=== PATIENT | female | born 1995 | race Caucasian/White ===

== ENCOUNTER 2024-10-09 11:09 | Outpatient (CLI) | payer BC, SELFPAY ==
[2024-10-09 12:31] LABS: Beta HCG Quantitative 76.92 mIU/ML
[2024-10-09 14:48] LABS: Hepatitis C Virus Antibody Negative (Negative)
[2024-10-09 22:22] LABS: HIV 1/2 Ab P24 Ag Result Negative (Negative)
[2024-10-10 07:12] LABS: Rapid Plasma Reagin Non-Reactive (NonReactive)
[2024-10-11 06:39] LABS: Prolactin 17.8 ng/mL
[2024-10-11 08:17] LABS: Hepatitis Be Antibody NON-REACTIVE (NON-REACTIVE)
== END 2024-10-09 11:10 | disposition home or self-care (01) ==
LOC: ANHLAB 11:10
PROVIDERS: Nurse Practitioner Obstetrics & Gynecology; Visit Provider Obstetrics & Gynecology
DX: Z11.3 Encounter for screening for infections with a predominantly sexual mode of transmission (principal); R79.89 Other specified abnormal findings of blood chemistry
CPT/HCPCS: 36415; 84146; 84702; 86592; 86703; 86707; 86803; G0432

== ENCOUNTER 2024-10-11 09:58 | Outpatient (CLI) | payer BC, SELFPAY ==
[2024-10-11 10:41] LABS: Beta HCG Quantitative 146.91 mIU/ML
== END 2024-10-11 09:59 | disposition home or self-care (01) ==
LOC: ANHLAB 10:00
PROVIDERS: Visit Provider Obstetrics & Gynecology
DX: T83.31XA Breakdown (mechanical) of intrauterine contraceptive device, initial encounter (principal); Z33.1 Pregnant state, incidental
CPT/HCPCS: 36415; 84702

== ENCOUNTER 2024-10-12 11:16 | Outpatient (CLI) | payer BC, SELFPAY ==
--- NOTE | ~2024-10-12 | US_ITS ---
EXAMINATION: US OB <=14 wk fetus w TV DATE: 10/12/2024 12:16 INDICATION: Pelvic and perineal pain during first trimester TECHNIQUE: Real-time pelvic ultrasound utilizing both a transvaginal and transabdominal probe was pe rformed. The interpreting radiologist was not present for the study. COMPARISON: None. FINDINGS: The uterus measures 7.8 x 4.1 x 4.7 cm. The endometrial complex measures 13 mm in thickness. There is a T-shaped linear echogenic and shadowing IUD in expected position within the endometrial canal. 4 m m cystic lesion along the posterior margin of the endometrial complex at the uterine body. On the reggie e images in additional 5 mm anechoic cystic lesion is identified along one side of the endometrial co mplex at the lower uterine segment. No definitive double decidual sign or internal yolk sac or pole associated with either cystic lesion. There is a 2.0 x 1.5 x 1.5 cm hypoechoic mass along the ri ght anterior margin of the fundus with appearance most suggestive of a pedunculated subserosal fibroi d. No definitive intrauterine or extrauterine gestational sac identified. The right ovary measures 2.3 x 1.9 x 2.0 cm. The left ovary measures 3.2 x 2.4 x 1.8 cm. 1.5 cm likel y corpus luteum cyst in the left ovary. Breast or flow identified in both ovaries on color Doppler. T here is no free fluid in the pelvis. IMPRESSION: 1. IUD in expected position within the endometrial canal with no definitive intrauterine gestational sac which is equivocal for early, failed or ectopic . 2. A couple 4 mm and 5 mm cystic lesions along the periphery of the endometrial canal in the posterio r body and lower uterine segment respectively which could represent myometrial cysts or potentially e karla gestational sacs. 3. 2.0 cm exophytic mass arising from the right anterior fundus most likely representing a pedunculat ed uterine fibroid. Reviewed, dictated and finalized at location B. ER MEAT IMPRESSION: 1. IUD in expected position within the endometrial canal with no definitive int rauterine gestational sac which is equivocal for early, failed or ectopic pregn ab. 2. A couple 4 mm and 5 mm cystic lesions along the periphery of the endometrial canal in the posterior body and lower uterine segment respectively which could represent myometrial cysts or potentially early gestational sacs. 3. 2.0 cm exophytic mass arising from the right anterior fundus most likely rep resenting a pedunculated uterine fibroid.
== END 2024-10-12 11:17 | disposition home or self-care (01) ==
PROVIDERS: Visit Provider Obstetrics & Gynecology
DX: O26.859 Spotting complicating pregnancy, unspecified trimester (principal); T83.31XA Breakdown (mechanical) of intrauterine contraceptive device, initial encounter; Y83.8 Other surgical procedures as the cause of abnormal reaction of the patient, or of later complication, without mention of misadventure at the time of the procedure; Z3A.00 Weeks of gestation of pregnancy not specified
CPT/HCPCS: 76801; 76817

== ENCOUNTER 2024-10-16 10:47 | Outpatient (CLI) | payer BC, SELFPAY | END 2024-10-16 10:48 | disposition home or self-care (01) | LOC: ANHLAB 10:49 | PROVIDERS: Visit Provider Obstetrics & Gynecology | DX: T83.31XA Breakdown (mechanical) of intrauterine contraceptive device, initial encounter (principal); Z33.1 Pregnant state, incidental | CPT/HCPCS: 36415; 84702 ==

== ENCOUNTER 2024-10-23 11:04 | Outpatient (CLI) | payer BC, SELFPAY ==
--- NOTE | ~2024-10-23 | US_ITS ---
EXAMINATION: US OB <=14 wk fetus w TV DATE: 10/23/2024 11:36 INDICATION: First trimester with inconclusive viability TECHNIQUE: Real-time pelvic ultrasound utilizing both a transvaginal and transabdominal probe was pe rformed. The interpreting radiologist was not present for the study. COMPARISON: None. FINDINGS: The uterus measures 8.1 x 4.2 x 4.8 cm. There is a linear echogenic and shadowing T-shaped IUD in exp ected position within the endometrial canal. The endometrial complex measures 1.4 cm. The posterior u terine body is a 2-3 mm anechoic likely myometrial cyst with no double decidual sign or evident inter nal yolk sac or pole to suggest a gestational sac. The right ovary measures 2.9 x 1.9 x 2.9 cm. The left ovary measures 3.7 x 3.4 x 2.0 cm. 1.1 cm anech oic possible corpus luteum cyst in the left ovary. Vascular flow identified in both ovaries on color Doppler. Abutting but appearing separate from the left ovary is a 1.9 x 1.8 x 1.1 cm complex cystic l esion with up to 4 mm thick hyperechoic wall surrounding a 1 cm anechoic ectopic gestational sac whic h contains both a 3 mm yolk sac and a single pole. The crown rump length measures 5 mm, which c orrelates with an estimated gestational age of 6 weeks and 1 days. heart motion is identified m easuring 110 beats per minute (bpm) by M-mode Doppler. There is no free fluid in the pelvis. IMPRESSION: 1. Left adnexal likely intratubal ectopic which contains a living 5 mm pole with feta l heart motion with heart rate of [address] Ponce discussed these findings with Iris Kohler ser the nurse for Dr. López at 11:58 AM. 2. Gestational age by ultrasound of 6 weeks 1 day(s) +/- 4 day(s). 3. IUD in expected position within the endometrial canal with no evident intrauterine gestational sac . Reviewed, dictated and finalized at location A. I MAKER IMPRESSION: 1. Left adnexal likely intratubal ectopic which contains a living 5 m m pole with heart motion with heart rate of [address] Rosario chopra iscussed these findings with Iris Pinedo the nurse for Dr. López at 11:58 AM. 2. Gestational age by ultrasound of 6 weeks 1 day(s) +/- 4 day(s). 3. IUD in expected position within the endometrial canal with no evident intrau terine gestational sac.
== END 2024-10-23 11:05 | disposition home or self-care (01) ==
LOC: MICIMG 11:04
PROVIDERS: PCP Nurse Practitioner Obstetrics & Gynecology; Visit Provider Nurse Practitioner Obstetrics & Gynecology
DX: O36.80X0 Pregnancy with inconclusive fetal viability, not applicable or unspecified (principal); Z3A.00 Weeks of gestation of pregnancy not specified
CPT/HCPCS: 76801; 76817

== ENCOUNTER 2024-10-23 12:47 | Day surgery (SDC) | payer BC, SELFPAY ==
[2024-10-23] VITALS (8 sets, daily range): BP systolic 114–141; BP diastolic 63–88; PULSE 71–98; RESP 14–20; TEMP 36.4; O2SAT 99–100; BMI 35.9
[2024-10-23] MEDS: LACTATED RINGERS 1,000 ML 30 ML IV CONT (13:45)
[2024-10-23] MEDS: ACETAMINOPHEN 500 MG TABLET 1000 MG PO (13:46)
[2024-10-23] MEDS: KETOROLAC 15 MG/ML VIAL (*BKC) IV PUSH (13:48)
--- NOTE | 2024-10-23 13:59 | P.PNAN_ITS ---
Anes - Initial Pre Proc Eval Procedure: Operation Date: 10/23/24 14:30 Proposed Procedures p Operative Laparoscopy for Ectopic - Pieter Vaughan MD Date/Time: 10/23/24 13:59 Surgeon: Pieter Vaughan MD Pre Op Diagnosis: ectopic Patient Data Age: 29 Gender: F Height: Weight: Allergies Allergy/AdvReac Type Severity Reaction Status Date / Time Sulfa (Sulfonamide AdvReac Mild YEAST Verified 08/04/24 10:27 Antibiotics) INFECTION Home Medications Medication Instructions Recorded Confirmed Type copper 380 square mm intrauterine 1 device intrauterine ONCE 08/04/24 08/04/24 History device (ParaGard T 380A) Patient hx anesthesia problems: post op nausea/vomiting Family hx anesthesia problems: none Results Review: All pre-operative results and documents have been reviewed as part of the pre- operative evaluation. [facility] Family History Family History Mother Depression Thyroid disease Father Hypertension Thyroid disease Sibling Thyroid disease Depression Grandparent Lymphoma Social History Social History Smoking status: Never smoker Alcohol intake: current Substance use: never Anes - Eval Final PreProcedure Day of Procedure 10/23/24 13:59 Patient weight: obese Heart: regular rate and rhythm Lungs: clear to auscultation Airway: Mallampati scale class II Neurological: alert and oriented Last oral intake: >/= 8 hours ASA classification: III Emergent: yes Anesthesia type and monitoring: general ETT and standard monitoring Results Review: All pre-operative results and documents have been reviewed as part of the pre- operative evaluation. Informed Consent: The patient's anesthetic plan and its attendant risks and benefits were discussed with the patient/family/POA. Questions were solicited and answers provided to the satisfaction of the patient/family/POA.
[2024-10-23] MEDS: SCOPOLAMINE 1 MG PATCH 1 PATCH TRANSDERM (14:13)
--- NOTE | 2024-10-23 14:23 | P.HP_ITS ---
H&P: HPI History of Present Illness Date/Time: 10/23/24 14:23 Chief Complaint: Ectopic Narrative: 29 y/o G0 with unplanned with indwelling copper IUD. She has been informed of risk of ectopic and was getting serial hcg and ultrasounds. Ultrasound today showed left adnexal ectopic with cardiac activity. No signs of rupture. She has been informed of treatment options of surgical removal recommended. Discussed methotrexate medication which she is not an optimal candidate for methotrexate due to her risk of ectopic rupture. Discussed risk of surgery and risk of not performing surgery. She is aware that usually able to remove by incision in tube and removal of ectopic product or need to remove affected tube. Discussed future risk of ectopic . Questions answered. Review of Systems Review of Systems: All systems reviewed & are unremarkable except as noted in HPI and below Cardiovascular: Cardiovascular: Reports no additional cardiovascular complaints, Denies chest pain and Denies dyspnea Respiratory: Respiratory: Reports no additional respiratory complaints and Denies dyspnea Gastrointestinal: Gastrointestinal: Reports abdominal pain, Denies change in bowel habits, Denies diarrhea, Denies nausea and Denies vomiting Genitourinary: Genitourinary: Reports pelvic pain Musculoskeletal: Musculoskeletal: Reports back pain Integumentary/Breasts: Skin/Breast: Reports system reviewed and no additional complaints, except as docu Neurologic: Reports system reviewed and no additional complaints, except as documented [facility] Family History Family History Mother Depression Thyroid disease Father Hypertension Thyroid disease Sibling Thyroid disease Depression Grandparent Lymphoma Social History Social History Smoking status: Never smoker Alcohol intake: current Substance use: never Meds Home Medications and Allergies Home Medications Medication Instructions Recorded Confirmed Type copper 380 square mm intrauterine 1 device intrauterine ONCE 08/04/24 08/04/24 History device (ParaGard T 380A) Allergies Allergy/AdvReac Type Severity Reaction Status Date / Time Sulfa (Sulfonamide AdvReac Mild YEAST Verified 08/04/24 10:27 Antibiotics) INFECTION Vital Signs Vital Signs - 24 hr 10/23/24 14:03 Temperature 97.5 F L Pulse Rate 75 Respiratory Rate 20 Blood Pressure 117/63 Pulse Oximetry 99 Oxygen Delivery Room Air Exam Const: Orientation/consciousness: oriented to person and oriented to place HENMT: Head: normal to inspection Eyes: General: appearance normal, both eyes and all related structures Resp: Effort & Inspection: normal respiratory effort Auscultation: clear to auscultation bilaterally Cardio: Rate: regular rate Rhythm: regular rhythm GI: Inspection: normal to inspection GI Palp: No Rebound tenderness present Neuro: General: oriented to person and oriented to place Cognition (Neuro): normal cognition Extrem: General: normal to inspection Psych: Appearance: grossly normal and well kempt Assessment and Plan Assessment and plan (1) Ectopic : Code(s): O00.90 - Unspecified ectopic without intrauterine Status: Acute Assessment and Plan: She has been informed of diagnosis and risk of not removing the ectopic to include rupture of ectopic, , hysterectomy. She agrees to laparoscopic removal of ectopic .
--- NOTE | 2024-10-23 14:30 | WPDHPUPDATE1 ---
History and Physical Update Update Date/Time: 10/23/24 14:30 History and Physical has been reviewed, including an updated exam of the patient. There are NO changes in the patient's condition. Risks, benefits, and alternatives have been discussed and questions answered. Patient agrees to proceed with procedure.
[2024-10-23] MEDS: DOXYCYCLINE 100 MG/NS 100 ML 100 MG/100 ML BAG IVPB (14:41)
[2024-10-23] MEDS: BUPivacaine HCL 0.5% PF 30 ML VIAL INFILTRATE (15:20)
--- NOTE | 2024-10-23 15:54 | P.OP_ITS ---
Procedure Note - Detailed Date of Procedure 10/23/24 Pre-op Diagnosis ectopic Post-op Diagnosis Same (Left ovarian ectopic ) Procedure Performed laparoscopic removal of ectopic with left salpingo-oophorectomy Surgeon Pieter Vaughan MD Anesthesia General Indications patient with conception with IUD was being followed closely for confirmation of location and had an ultrasound today which showed a left ectopic near the left ovary with cardiac activity. Findings Normal appearing left tube, left ovary with small area of adherent clot once this was removed then area of oozing noted under it and growth which took up greater than 50% of ovary noted. Description of Procedure after informed consent was obtained patient was taken to the operating room and general endotracheal anesthesia was initiated. She was placed in low lithotomy position and prepped and draped in sterile fashion. Straight catheter was used and drained of 100 cc of yellow urine. Speculum was inserted single-tooth tenaculum placed on anterior lip of the cervix IUD string visualized the acorn uterine manipulator was inserted. Attention was turned to the abdomen. 0.5% Marcaine was injected at the umbilicus and a vertical incision was made with the scalpel a Veress needle was then inserted confirmation into the abdomen was obtained with normal free flow of fluid and normal peritoneal pressures. A pneumoperitoneum with 15 mm per mercury was obtained. Patient was placed in Trendelenburg position attention and a 5 mm port was inserted under laparoscopic visualization. Attention was turned to the left side of the abdomen under laparoscopic visualization a 5 mm port was inserted. Attention was turned to the right side of the abdomen and Marcaine was injected before eac h incision. And a 10 11 mm port was inserted under laparoscopic visualization. The pelvis was visualized. The left tube did not appear dilated. There was some adherent clot on the left ovary. This was removed. There was an area underneath the clot that had a slow slight ooze. The ovary was inspected and it appeared that the ectopic was on the ovary distal taking up greater than 50% of the ovary. At this time decision was made to remove the left ovary and tube for removal of the ectopic . LigaSure was used and the infundibulopelvic ligament was ligated and the fallopian tube and ovarian ligament were ligated. The fallopian tube and ovary were placed in the Endo-Catch bag. The pelvis was irrigated and cleared of clot in the cul-de-sac. The left adnexa area was noted to be hemostatic. The incision on the left side was extended and the fascia was extended. The Endo-Catch bag was removed intact. The pneumoperitoneum was released. The fascia was approximated with 0 Vicryl on a UR 6. Skin incisions were closed subcuticular with 4-0 Vicryl and Dermabond. Sponge count was correct. Patient was extubated in the operating room and taken to recovery in stable condition. Estimated Blood Loss 30 Urine Output 100 Drains No Packing No Pathology Yes ( Left fallopian tube and ovary and adherent clot) Complications No immediate complications Condition Stable Disposition PACU [facility] Billing Surgery - Charge Forward: Surgery Billing
[2024-10-23] MEDS: fentaNYL CITRATE INJ (*CRX) 100 MCG/2 ML VIAL 25 MCG IV PUSH ×2 (16:35→16:37)
[2024-10-23] MEDS: oxyCODONE HCL (*CRX) 5 MG TAB IR PO (17:40)
== END 2024-10-23 18:10 | disposition home or self-care (01) ==
PROVIDERS: PCP Nurse Practitioner Obstetrics & Gynecology; Visit Provider Obstetrics & Gynecology
PROC: (CPT 49320; principal; 2024-10-23 14:30)
DX: O00.202 Left ovarian pregnancy without intrauterine pregnancy (principal)
CPT/HCPCS: 59151; 36415; 85461; 86850; 86900; 86901; 88305; A9270; J1100; J1885; J2003; J2250; J2405; J2704; J3010; J7030; J7120

== ENCOUNTER 2024-10-31 10:01 | Outpatient (CLI) | payer BC, SELFPAY | END 2024-10-31 10:02 | disposition home or self-care (01) | PROVIDERS: PCP Nurse Practitioner Obstetrics & Gynecology; Visit Provider Obstetrics & Gynecology | DX: O00.90 Unspecified ectopic pregnancy without intrauterine pregnancy (principal); Z3A.00 Weeks of gestation of pregnancy not specified | CPT/HCPCS: 36415; 84702 ==

== ENCOUNTER 2024-11-01 09:03 | Outpatient (CLI) | payer BC, SELFPAY ==
--- NOTE | ~2024-11-01 | US_ITS ---
EXAMINATION: US OB <=14 wk fetus w TV DATE: 11/01/2024 10:05 INDICATION: Ectopic TECHNIQUE: Real-time pelvic ultrasound utilizing both a transvaginal and transabdominal probe was pe rformed. The interpreting radiologist was not present for the study. COMPARISON: None. FINDINGS: The uterus measures 8.1 x 3.5 x 3.8 cm. Again seen is a linearT-shaped shadowing IUD in expected pos ition within the endometrial canal.No intrauterine . A yolk sac and pole are identifi ed within an ectopic abutting the left side of the uterus. The crown rump length measures 9 mm, which correlates with an estimated gestational age of 7 weeks and 0 days. heart motion is identified measuring 147 beats per minute (bpm) by M-mode Doppler. The majority the gestational sac i s surrounded by echogenic parametrial fat. On the cine images there is a claw sign of hypoechoic myom etrium which appears contiguous with a small portion of the gestational sac suggesting this likely re presents an ectopic at the junction of the uterine cornua and origin of the left fallopian tube. The right ovary measures 2.9 x 2.1 x 1.8 cm with internal vascular flow on color Doppler. The left ov grayson is not visualized and has been recently resected. There is a minimal amount of anechoic free flui d in the cul-de-sac. IMPRESSION: 1. Single living fetus with heart rate of 147 bpm within an ectopic likely at the jeremie ction of the uterine cornua and the origin of the left fallopian tube. This was discussed with Dr. Pandya at 10:10 AM. Reviewed, dictated and finalized at location A. TILE INSTALLER IMPRESSION: 1. Single living fetus with heart rate of 147 bpm within an ectopic pregn ab likely at the junction of the uterine cornua and the origin of the left fa llopian tube. This was discussed with Dr. Vaughan at 10:10 AM.
== END 2024-11-01 09:04 | disposition home or self-care (01) ==
LOC: ANHIMG 09:04
PROVIDERS: PCP Nurse Practitioner Obstetrics & Gynecology; Visit Provider Obstetrics & Gynecology
DX: O00.90 Unspecified ectopic pregnancy without intrauterine pregnancy (principal); O36.80X0 Pregnancy with inconclusive fetal viability, not applicable or unspecified; Z3A.00 Weeks of gestation of pregnancy not specified
CPT/HCPCS: 76801; 76817